=== PATIENT | female | born 1955 | race African-American/Black ===

== ENCOUNTER → 2020-08-22 | Outpatient (CLI) | payer MEDICARE, MEDICAID | END | disposition home or self-care (01) | LOC: MRI 08:31 | PROVIDERS: ATTEND Neurological Surgery | DX: M48.061 Spinal stenosis, lumbar region without neurogenic claudication (principal); M47.816 Spondylosis without myelopathy or radiculopathy, lumbar region; M89.38 Hypertrophy of bone, other site; M51.26 Other intervertebral disc displacement, lumbar region; M41.86 Other forms of scoliosis, lumbar region; M54.9 Dorsalgia, unspecified | CPT/HCPCS: 72114; 72148 ==

== ENCOUNTER → 2020-09-04 | Outpatient (CLI) | payer MEDICARE, MEDICAID | END | disposition home or self-care (01) | LOC: CT 09:30 | PROVIDERS: ATTEND Neurological Surgery | DX: M54.9 Dorsalgia, unspecified (principal) | CPT/HCPCS: 72131 ==

== ENCOUNTER 2021-12-29 12:10 | Emergency (ER) | payer MEDICARE, MEDICAID ==
[~2021-12-29] VITALS: Ht 172.7 cm; Wt 120.0 kg
[2021-12-29 12:26] VITALS: BP 150/84
[2021-12-29] MEDS ORDERED: LIDO1ADH23 TP (18:01)
== END 2021-12-29 18:45 | disposition home or self-care (01) ==
LOC: ER 12:37
DX: S20.212A Contusion of left front wall of thorax, initial encounter (principal); I10 Essential (primary) hypertension; J45.909 Unspecified asthma, uncomplicated; V89.2XXA Person injured in unspecified motor-vehicle accident, traffic, initial encounter; Y93.89 Activity, other specified; Y92.89 Other specified places as the place of occurrence of the external cause; Y99.8 Other external cause status
CPT/HCPCS: 71101; 72040; 99284

== ENCOUNTER → 2022-06-21 | Outpatient (CLI) | payer MEDICARE, MEDICAID ==
[~2022-06-21] MED LIST: FURO-152 MT; HYDR-4001 MT; LIDO1ADH23 TP
== END | disposition home or self-care (01) ==
LOC: RAD 13:54
PROVIDERS: ATTEND Neurological Surgery
DX: M47.816 Spondylosis without myelopathy or radiculopathy, lumbar region (principal); M48.061 Spinal stenosis, lumbar region without neurogenic claudication; M54.9 Dorsalgia, unspecified; M43.27 Fusion of spine, lumbosacral region
CPT/HCPCS: 72114

== ENCOUNTER → 2022-07-07 | Outpatient (CLI) | payer MEDICARE, MEDICAID | END | disposition home or self-care (01) | LOC: MRI 10:35 | PROVIDERS: ATTEND Neurological Surgery | DX: M47.812 Spondylosis without myelopathy or radiculopathy, cervical region (principal); M25.78 Osteophyte, vertebrae; M48.02 Spinal stenosis, cervical region; M50.31 Other cervical disc degeneration, high cervical region; M40.40 Postural lordosis, site unspecified | CPT/HCPCS: 72141 ==

== ENCOUNTER 2022-07-24 11:22 | Emergency (ER) | payer MEDICARE, MEDICAID | END 2022-07-24 12:53 | disposition left against medical advice (07) | LOC: ER 11:31 | DX: Z53.21 Procedure and treatment not carried out due to patient leaving prior to being seen by health care provider (principal) ==

== ENCOUNTER → 2023-01-13 | Outpatient (CLI) | payer MEDICARE, MEDICAID | END | disposition home or self-care (01) | LOC: MRI 09:37 | PROVIDERS: ATTEND Neurological Surgery | DX: M48.02 Spinal stenosis, cervical region (principal); M25.78 Osteophyte, vertebrae | CPT/HCPCS: 72141 ==

== ENCOUNTER 2023-03-14 05:17 | Inpatient (IN) | payer MEDICARE, MEDICAID ==
[~2023-03-14] VITALS: Ht 165.1 cm; Wt 115.3 kg
[2023-03-14] VITALS (11 sets, daily range): BP systolic 112–128; BP diastolic 60–116; PULSE 66–94; RESP 16–22; TEMP 97.8–98; O2SAT 98
[2023-03-14 06:04] LABS: CALCIUM 8.8 mg/dL (8.5-10.1); CHLORIDE 106 mEq/L (98-107); INDEX HEMOLYSI 1 (1-3); INDEX ICTERIC 1 (1-4); INDEX LIPEMIC 1 (1-3); SODIUM 135 mEq/L (136-145)
[2023-03-14 06:08] LABS: CARBON DIOXIDE 26 mEq/L (21-32); CREATININE 0.7 mg/dL (0.6-1.3); GLUCOSE 203 mg/dL (70-105); UREA NITROGEN BLOOD 16 mg/dL (7-21)
[2023-03-14] MEDS ORDERED: SODIUM CHLORIDE 0.9% 1,000 ML IV SCH (06:15)
[2023-03-14] MEDS ORDERED: LIDOCAINE HCL/EPINEPHRINE 1%-EPI 1:100,000 20 ML VIAL ONE (06:26)
[2023-03-14] MEDS ORDERED: GENTAMICIN SULF 40MG/ML 2ML VIAL ONE (06:26)
[2023-03-14] MEDS ORDERED: THROMBIN (BOVINE) 5000 UNITS/VIAL TOP ONE (06:26)
[2023-03-14] MEDS ORDERED: METF-873 PO (06:51)
[2023-03-14] MEDS ORDERED: METH-773 PO (06:51)
[2023-03-14] MEDS ORDERED: BUDE6HFA IH (06:51)
[2023-03-14] MEDS ORDERED: HYDR25TA PO (06:51)
[2023-03-14] MEDS ORDERED: ASPI-864 PO (06:51)
[2023-03-14] MEDS ORDERED: ALBU2SYR23 IH (06:51)
[2023-03-14] MEDS ORDERED: LIP40 PO (06:51)
[2023-03-14] MEDS ORDERED: HYDR-4009 PO (06:51)
[2023-03-14] MEDS ORDERED: ONDANSETRON HCL 4MG/2ML INJ ONE (06:54)
[2023-03-14] MEDS ORDERED: DEXAMETHASONE 4MG/ML 1ML VIAL ONE (06:54)
[2023-03-14] MEDS ORDERED: ROCURONIUM BROMIDE 10MG/ML VIAL 5ML IV ONE ×2 (06:54→08:04)
[2023-03-14] MEDS ORDERED: PROPOFOL 10MG/ML 100ML 200 ML IV ONE (06:54)
[2023-03-14] MEDS ORDERED: FENTANYL CITRATE/PF 50MCG/ML 2ML VIAL ONE (06:55)
[2023-03-14] MEDS ORDERED: GLYCOPYRROLATE 0.2 MG/ML 2ML VIAL ONE ×3 (06:55→08:50)
[2023-03-14] MEDS ORDERED: PROPOFOL 200MG/20ML VIAL IV ONE (07:01)
[2023-03-14] MEDS ORDERED: ETOMIDATE 2MG/ML 10ML VIAL IV ONE (07:03)
[2023-03-14] MEDS ORDERED: MIDAZOLAM HCL 2 MG/2 ML VIAL ONE (07:03)
[2023-03-14] MEDS ORDERED: HYDROMORPHONE HCL/PF 2MG/ML CPJ ONE (07:56)
[2023-03-14] MEDS ORDERED: LABETALOL 5MG/ML SYR 20 MG/4 ML SYRINGE IV PRN (08:45)
[2023-03-14] MEDS ORDERED: ONDANSETRON HCL 4MG/2ML INJ IV PRN (08:45)
[2023-03-14] MEDS ORDERED: HYDROMORPHONE HCL/PF 2MG/ML CPJ IV PRN (08:45)
[2023-03-14] MEDS ORDERED: MEPERIDINE HCL/PF 25MG/ML CPJ IV PRN (08:45)
[2023-03-14] MEDS ORDERED: NEOSTIGMINE METHYLSULFATE 1MG/ML 10 ML VIAL ONE (08:50)
[2023-03-14] MEDS ORDERED: MORPHINE SULFATE 4 MG/ML CPJ (NOT FOR IM USE) IV PRN (09:15)
[2023-03-14] MEDS ORDERED: IPRATROPIUM/ALBUTEROL 0.5-3(2.5)MG/3ML NEB HHN PRN (10:00)
[2023-03-14] MEDS ORDERED: NICARDIPINE 100 MG in SODIUM CHLORIDE 0.9% 60 ML IV PRN (10:00)
[2023-03-14] MEDS: DEXT 5%/LACTATED RINGERS 1,000 ML IV SCH ×2 (10:22→18:01)
[2023-03-14] MEDS ORDERED: CEFAZOLIN SODIUM 1000MG/VIAL IV SCH (14:00)
[2023-03-14] MEDS: DEXAMETHASONE 4MG/ML 1ML VIAL IV SCH ×3 (14:30→23:18)
[2023-03-14] MEDS: CEFAZOLIN 1000MG PREMIX 50 ML IV SCH ×2 (14:33→23:18)
[2023-03-14] MEDS ORDERED: DEXTROSE 50% WATER 50ML SYRINGE IV PRN (16:45)
[2023-03-14] MEDS: INSULIN LISPRO 100 UNITS/ML SUBCUT SCH ×2 (18:00→21:55)
[2023-03-14] MEDS: BUDESONIDE 0.5MG/2ML NEB HHN SCH (20:45)
[2023-03-14] MEDS: IPRATROPIUM/ALBUTEROL 0.5-3(2.5)MG/3ML NEB HHN SCH (20:46)
[2023-03-14] MEDS: BLOOD SUGAR DIAGNOSTIC STRIP TEST SCH (21:38)
[2023-03-15] VITALS (25 sets, daily range): BP systolic 65–138; BP diastolic 55–114; PULSE 63–106; RESP 15–30; TEMP 97.6–98.7; O2SAT 95–98
[2023-03-15] MEDS: IPRATROPIUM/ALBUTEROL 0.5-3(2.5)MG/3ML NEB HHN SCH ×4 (00:53→14:23)
[2023-03-15 05:49] LABS: BASOPHILS % 0.1 % (0.0-2.0); HEMATOCRIT. 39.7 % (36.0-48.0); HEMOGLOBIN. 13.4 g/dL (12.0-16.0); LYMPHOCYTES % 8.2 % (20.0-50.0); MEAN CORPUSCULAR HEMOGLOBIN 29.3 pg (28.0-32.0); MEAN CORPUSCULAR HGB CONC 33.8 g/dL (31.0-37.0); MEAN CORPUSCULAR VOLUME 86.8 fL (81.0-99.0); MONOCYTES % 4.1 % (2.0-8.0); NEUTROPHILS % 87.6 % (40.0-76.0); PLATELET 241 x1000/uL (130-400); RED BLOOD CELL COUNT 4.58 mill/uL (4.2-5.4); WHITE BLOOD COUNT 15.9 x1000/uL (4.5-11.0)
[2023-03-15 06:15] LABS: CALCIUM 8.8 mg/dL (8.5-10.1); CARBON DIOXIDE 26 mEq/L (21-32); CHLORIDE 105 mEq/L (98-107); INDEX HEMOLYSI 3 (1-3); INDEX ICTERIC 1 (1-4); INDEX LIPEMIC 1 (1-3); POTASSIUM 4.3 mEq/L (3.5-5.1); SODIUM 134 mEq/L (136-145)
[2023-03-15 06:25] LABS: CREATININE 0.6 mg/dL (0.6-1.3); GLUCOSE 255 mg/dL (70-105); UREA NITROGEN BLOOD 14 mg/dL (7-21)
[2023-03-15] MEDS: BLOOD SUGAR DIAGNOSTIC STRIP TEST SCH ×4 (06:55→21:07)
[2023-03-15] MEDS: CEFAZOLIN 1000MG PREMIX 50 ML IV SCH ×2 (06:58→13:55)
[2023-03-15] MEDS: INSULIN LISPRO 100 UNITS/ML SUBCUT SCH ×4 (06:58→21:21)
[2023-03-15] MEDS: DEXAMETHASONE 4MG/ML 1ML VIAL IV SCH ×2 (06:58→12:41)
[2023-03-15] MEDS: BUDESONIDE 0.5MG/2ML NEB HHN SCH ×2 (08:29→09:00)
[2023-03-15] MEDS ORDERED: NALOXONE HCL 0.4MG/ML VIAL IV PRN (13:00)
[2023-03-15] MEDS ORDERED: ONDANSETRON HCL 4MG/2ML INJ IV PRN (19:30)
[2023-03-15] MEDS ORDERED: ACETAMINOPHEN 325MG TABLET PO PRN (19:30)
[2023-03-16] VITALS (8 sets, daily range): BP systolic 110–158; BP diastolic 75–95; PULSE 49–78; RESP 10–18; TEMP 97.4–99
[2023-03-16] MEDS: BLOOD SUGAR DIAGNOSTIC STRIP TEST SCH ×4 (06:10→21:00)
[2023-03-16 06:48] LABS: BASOPHILS % 0.2 % (0.0-2.0); HEMATOCRIT. 39.7 % (36.0-48.0); HEMOGLOBIN. 13.3 g/dL (12.0-16.0); LYMPHOCYTES % 11.9 % (20.0-50.0); MEAN CORPUSCULAR HEMOGLOBIN 29.2 pg (28.0-32.0); MEAN CORPUSCULAR HGB CONC 33.4 g/dL (31.0-37.0); MEAN CORPUSCULAR VOLUME 87.4 fL (81.0-99.0); MONOCYTES % 5.9 % (2.0-8.0); PLATELET 249 x1000/uL (130-400); RED BLOOD CELL COUNT 4.55 mill/uL (4.2-5.4); RED CELL DISTRIBUTION WIDTH 13.1 % (11.6-14.6); WHITE BLOOD COUNT 21.2 x1000/uL (4.5-11.0)
[2023-03-16 06:59] LABS: CHLORIDE 103 mEq/L (98-107); INDEX HEMOLYSI 2 (1-3); INDEX ICTERIC 1 (1-4); INDEX LIPEMIC 1 (1-3); POTASSIUM 4.4 mEq/L (3.5-5.1); SODIUM 134 mEq/L (136-145)
[2023-03-16 07:03] LABS: CALCIUM 8.8 mg/dL (8.5-10.1); CARBON DIOXIDE 25 mEq/L (21-32); CREATININE 0.6 mg/dL (0.6-1.3); GLUCOSE 210 mg/dL (70-105); UREA NITROGEN BLOOD 23 mg/dL (7-21)
[2023-03-16] MEDS: HYDROCODONE/ACETAMINOPHEN 5/325MG TABLET PO PRN ×2 (07:15→21:20)
[2023-03-16] MEDS: INSULIN LISPRO 100 UNITS/ML SUBCUT SCH ×4 (08:08→21:25)
[2023-03-16] MEDS: CLONIDINE 0.1MG TABLET PO PRN (08:57)
[2023-03-16] MEDS: BUDESONIDE 0.5MG/2ML NEB HHN SCH (20:32)
[2023-03-16] MEDS: AMLODIPINE 5MG TABLET PO SCH (21:18)
[2023-03-16] MEDS: ATORVASTATIN CALCIUM 40MG TABLET PO SCH (21:18)
[2023-03-17] VITALS: BP 173/85; PULSE 70; RESP 19; TEMP 98.6
[2023-03-17] MEDS: CLONIDINE 0.1MG TABLET PO PRN (00:53)
[2023-03-17] MEDS: HYDROCODONE/ACETAMINOPHEN 5/325MG TABLET PO PRN (02:41)
[2023-03-17 04:00] VITALS: BP 143/83; PULSE 50; RESP 18; TEMP 98.5
[2023-03-17 06:47] LABS: BASOPHILS % 0.1 % (0.0-2.0); EOSINOPHILS % 0.5 % (0.0-5.0); HEMATOCRIT. 40.1 % (36.0-48.0); HEMOGLOBIN. 13.6 g/dL (12.0-16.0); LYMPHOCYTES % 26.2 % (20.0-50.0); MEAN CORPUSCULAR HEMOGLOBIN 29.7 pg (28.0-32.0); MEAN CORPUSCULAR VOLUME 87.3 fL (81.0-99.0); MEAN PLATELET VOLUME 7.7 fl (7.4-10.4); NEUTROPHILS % 63.2 % (40.0-76.0); PLATELET 234 x1000/uL (130-400); RED BLOOD CELL COUNT 4.59 mill/uL (4.2-5.4); RED CELL DISTRIBUTION WIDTH 13.2 % (11.6-14.6)
[2023-03-17] MEDS: BLOOD SUGAR DIAGNOSTIC STRIP TEST SCH ×4 (06:50→21:00)
[2023-03-17] MEDS: BUDESONIDE 0.5MG/2ML NEB HHN SCH ×2 (07:53→22:00)
[2023-03-17 08:00] VITALS: BP 150/90; PULSE 68; RESP 21; TEMP 99
[2023-03-17] MEDS: AMLODIPINE 5MG TABLET PO SCH ×2 (09:26→21:05)
[2023-03-17] MEDS: FUROSEMIDE 20MG TABLET PO SCH (09:26)
[2023-03-17] MEDS: INSULIN GLARGINE 100 UNITS/ML SUBCUT SCH (09:32)
[2023-03-17] MEDS: INSULIN LISPRO 100 UNITS/ML SUBCUT SCH ×4 (09:32→21:09)
[2023-03-17 11:59] LABS: CHLORIDE 107 mEq/L (98-107); INDEX HEMOLYSI 1 (1-3); INDEX ICTERIC 1 (1-4); INDEX LIPEMIC 1 (1-3); POTASSIUM 4.1 mEq/L (3.5-5.1); SODIUM 136 mEq/L (136-145)
[2023-03-17 12:00] VITALS: BP 146/85; PULSE 78; RESP 18; TEMP 100
[2023-03-17 12:03] LABS: CALCIUM 8.3 mg/dL (8.5-10.1); CARBON DIOXIDE 27 mEq/L (21-32); CREATININE 0.7 mg/dL (0.6-1.3); GLUCOSE 168 mg/dL (70-105); UREA NITROGEN BLOOD 17 mg/dL (7-21)
[2023-03-17 16:00] VITALS: BP 152/90; PULSE 69; RESP 19; TEMP 98.8
[2023-03-17] MEDS: POLYETHYLENE GLYCOL 3350 (17GM) 1 DOSE PACK PO SCH (17:15)
[2023-03-17] MEDS: DOCUSATE SODIUM 100MG CAPSULE PO SCH (17:15)
[2023-03-17 20:00] VITALS: BP 141/72; PULSE 67; RESP 23; TEMP 97.9
[2023-03-17] MEDS: ATORVASTATIN CALCIUM 40MG TABLET PO SCH (21:04)
[2023-03-18] VITALS: BP 142/86; PULSE 66; RESP 21; TEMP 98.2
[2023-03-18] MEDS: HYDROCODONE/ACETAMINOPHEN 5/325MG TABLET PO PRN ×2 (03:18→08:44)
[2023-03-18 04:00] VITALS: BP 140/70; PULSE 60; RESP 19; TEMP 98.1
[2023-03-18] MEDS: BLOOD SUGAR DIAGNOSTIC STRIP TEST SCH ×2 (06:22→11:50)
[2023-03-18 08:00] VITALS: BP 131/82; PULSE 73; RESP 18; TEMP 98.2
[2023-03-18] MEDS: AMLODIPINE 5MG TABLET PO SCH (08:43)
[2023-03-18] MEDS: POLYETHYLENE GLYCOL 3350 (17GM) 1 DOSE PACK PO SCH (08:43)
[2023-03-18] MEDS: FUROSEMIDE 20MG TABLET PO SCH (08:43)
[2023-03-18] MEDS: DOCUSATE SODIUM 100MG CAPSULE PO SCH (08:44)
[2023-03-18] MEDS: INSULIN LISPRO 100 UNITS/ML SUBCUT SCH ×2 (08:55→12:20)
[2023-03-18] MEDS: BUDESONIDE 0.5MG/2ML NEB HHN SCH (09:22)
[2023-03-18] MEDS ORDERED: MORPHINE SULFATE 4 MG/ML CPJ (NOT FOR IM USE) IV PRN (10:15)
[2023-03-18] MEDS ORDERED: THROAT LOZENGES-BENZOCAINE/MENTH/CETYLPYRD CL LOZENGES MM PRN (11:30)
[2023-03-18] MEDS ORDERED: GLIP5TAB12 MT (11:37)
[2023-03-18] MEDS ORDERED: HYDR-4001 MT ×2 (11:37→11:40)
[2023-03-18 12:00] VITALS: BP 120/85; PULSE 81; RESP 18; TEMP 97.5
[2023-03-18] MEDS: INSULIN GLARGINE 100 UNITS/ML SUBCUT SCH (14:05)
[2023-03-18 15:35] VITALS: BP 130/80; PULSE 77; TEMP 97.9; O2SAT 99
== END 2023-03-18 17:08 | disposition home or self-care (01) | DRG 471 ==
LOC: OR 05:17 → MICUSO 15:23 → 3WST 03-15 19:01
PROVIDERS: ADMIT Neurological Surgery; ATTEND Neurological Surgery
PROC: 0RG10A0 Fusion of Cervical Vertebral Joint with Interbody Fusion Device, Anterior Approach, Anterior Column, Open Approach (ICD-10-PCS; 2023-03-14)
PROC: 0RB30ZZ Excision of Cervical Vertebral Disc, Open Approach (ICD-10-PCS; 2023-03-14)
PROC: 01N10ZZ Release Cervical Nerve, Open Approach (ICD-10-PCS; 2023-03-14)
PROC: 5A09357 Assistance with Respiratory Ventilation, Less than 24 Consecutive Hours, Continuous Positive Airway Pressure (ICD-10-PCS; principal; 2023-03-16)
DX: M47.12 Other spondylosis with myelopathy, cervical region (principal); G82.50 Quadriplegia, unspecified; M50.021 Cervical disc disorder at C4-C5 level with myelopathy; Z68.41 Body mass index [BMI] 40.0-44.9, adult; M47.22 Other spondylosis with radiculopathy, cervical region; M50.121 Cervical disc disorder at C4-C5 level with radiculopathy; J44.9 Chronic obstructive pulmonary disease, unspecified; M48.02 Spinal stenosis, cervical region; K21.9 Gastro-esophageal reflux disease without esophagitis; E66.9 Obesity, unspecified; B19.20 Unspecified viral hepatitis C without hepatic coma; D72.829 Elevated white blood cell count, unspecified; E11.9 Type 2 diabetes mellitus without complications; E78.5 Hyperlipidemia, unspecified; F17.210 Nicotine dependence, cigarettes, uncomplicated; F41.9 Anxiety disorder, unspecified; G47.33 Obstructive sleep apnea (adult) (pediatric); I10 Essential (primary) hypertension
CPT/HCPCS: 36415; 72040; 76000; 80048; 82962; 83036; 84145; 85025; 86850; 86900; 88304; 88311; 94640; 94660; 95863; 95925; 95926; 95928; 95929; 97116; 97162; 97166; 97535; J0690; J1100; J1170; J1580; J1815; J2250; J2405; J2704; J2710; J3010; J3490; J7030; J7121; J7626; L0172; C1713

== ENCOUNTER → 2023-07-07 | Outpatient (CLI) | payer MEDICARE, MEDICAID ==
[~2023-07-07] MED LIST changes: +ALBU2SYR23 IH; +BUDE6HFA IH; +GLIP5TAB22 MT; +HYDR-4009 PO; +HYDR25TA PO; +LIP40 PO; +METF-873 PO; +METH-773 PO
== END | disposition home or self-care (01) ==
LOC: RAD 16:00
PROVIDERS: ATTEND Neurological Surgery
DX: M47.812 Spondylosis without myelopathy or radiculopathy, cervical region (principal); M54.2 Cervicalgia
CPT/HCPCS: 72052

== ENCOUNTER 2023-11-01 12:28 | Emergency (ER) | payer MEDICARE, MEDICAID ==
[~2023-11-01] VITALS: Ht 165.1 cm; Wt 104.3 kg
[2023-11-01 12:53] VITALS: O2SAT 98
[2023-11-01 13:09] VITALS: TEMP 98.6
[2023-11-01 13:39] LABS: CARBON DIOXIDE 25 mEq/L (21-32); CHLORIDE 106 mEq/L (98-107); POTASSIUM 4.1 mEq/L (3.5-5.1); SODIUM 136 mEq/L (136-145)
[2023-11-01 13:40] LABS: CALCIUM 8.7 mg/dL (8.7-10.4)
[2023-11-01 13:45] LABS: CREATININE 0.9 mg/dL (0.6-1.0); GLUCOSE 285 mg/dL (70-105); UREA NITROGEN BLOOD 8 mg/dL (9-23)
[2023-11-01 13:52] LABS: HEMOGLOBIN. 13.7 g/dL (12.0-16.0); MEAN CORPUSCULAR HEMOGLOBIN 29.6 pg (28.0-32.0); MEAN CORPUSCULAR HGB CONC 34.2 g/dL (31.0-37.0); MEAN CORPUSCULAR VOLUME 86.8 fL (81.0-99.0); MEAN PLATELET VOLUME 8.2 fl (7.4-10.4); MONOCYTES % 11.1 % (2.0-8.0); NEUTROPHILS % 55.9 % (40.0-76.0); PLATELET 260 x1000/uL (130-400); RED BLOOD CELL COUNT 4.61 mill/uL (4.2-5.4); RED CELL DISTRIBUTION WIDTH 13.4 % (11.6-14.6)
[2023-11-01 13:59] LABS: TROPONIN I HIGH SENSITIVITY < 4 ng/L (3.0-34)
[2023-11-01 18:55] VITALS: BP 142/90; PULSE 64; RESP 16
== END 2023-11-01 19:07 | disposition home or self-care (01) ==
LOC: ER 12:28 → CANBEDREQ 11-02 18:04
DX: M54.2 Cervicalgia (principal); J39.2 Other diseases of pharynx; J45.909 Unspecified asthma, uncomplicated; I10 Essential (primary) hypertension; Z79.899 Other long term (current) drug therapy
CPT/HCPCS: 36415; 70490; 71045; 80048; 84484; 85025; 93005; 99285

== ENCOUNTER → 2023-11-11 | Outpatient (CLI) | payer MEDICARE, MEDICAID | END | disposition home or self-care (01) | LOC: RAD 11:40 | PROVIDERS: ATTEND Neurological Surgery | DX: M47.812 Spondylosis without myelopathy or radiculopathy, cervical region (principal); M48.02 Spinal stenosis, cervical region | CPT/HCPCS: 72052 ==

== ENCOUNTER → 2024-08-03 | Outpatient (CLI) | payer MEDICARE, MEDICAID ==
[~2024-08-03] MED LIST changes: +METF-1149 PO; -METF-873 PO
== END | disposition home or self-care (01) ==
LOC: RAD 11:42
PROVIDERS: ATTEND Neurological Surgery
DX: M47.812 Spondylosis without myelopathy or radiculopathy, cervical region (principal); M43.22 Fusion of spine, cervical region; M25.78 Osteophyte, vertebrae
CPT/HCPCS: 72052